=== PATIENT | female | born 1975 | race Caucasian/White ===

== ENCOUNTER 2016-09-23 08:51 | Emergency (ER) | payer BC ==
[2016-09-23 09:00] VITALS: BP 124/63
--- NOTE | 2016-09-23 09:16 | UC ---
Lower Extremity/Ankle HPI - HPI Summary HPI Summary: Right heel pain for about a week. no known injury. she is not a diabetic. it hurts more after a days work. 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 - History of Current Complaint Chief Complaint: UCLowerExtremity Stated Complaint: RIGHT FOOT/HEEL COMPLAINT Time Seen by Provider: 09/23/16 09:09 Hx Obtained From: Patient Hx Last Menstrual Period: 09/03/16 Onset/Duration: Gradual Onset Severity Initially: Moderate Severity Currently: Severe Aggravating Factor(s): Standing, Ambulation Alleviating Factor(s): Rest, Elevation Able to Bear Weight: Yes - Risk Factors Gout Risk Factors: Negative DVT Risk Factors: Negative Septic Arthritis Risk Factor: Negative - Allergies/Home Medications Allergies/Adverse Reactions: Allergies Allergy/AdvReac Type Severity Reaction Status Date / Time Amoxicillin Allergy Severe Hives Verified 09/23/16 08:55 seasonal Allergy Congestion Uncoded 09/23/16 08:55 Home Medications: Home Medications Diphenhydramine HCl [Benadryl Allergy 25 MG CAP] 25 mg PO DAILY PRN 09/23/16 [ History Confirmed 09/23/16] PMH/Surg Hx/FS Hx/Imm Hx Endocrine History Of: Denies: Diabetes Cancer History Of: Denies: Breast Cancer - Surgical History Surgical History: Yes Surgery Procedure, Year, and Place: hernia. colon polyp removal - Family History Known Family History: Positive: Hypertension - Social History Alcohol Use: Occasionally Substance Use Type: None Smoking Status (MU): Never Smoked Tobacco - Immunization History Most Recent Influenza Vaccination: Not the Season Review of Systems All Other Systems Reviewed And Are Negative: Yes Physical Exam Triage Information Reviewed: Yes Appearance: Well-Appearing, No Pain Distress, Well-Nourished Vital Signs: Initial Vital Signs Temp 98.6 F 09/23/16 08:56 Pulse 75 09/23/16 08:56 Resp 16 09/23/16 08:56 BP 124/63 09/23/16 08:56 Pulse Ox 100 09/23/16 08:56 Vital Signs Reviewed: Yes Eyes: Positive: Conjunctiva Clear. Negative: Conjunctiva Inflamed ENT Exam: Normal Dental Exam: Normal Neck exam: Normal Respiratory Exam: Normal Cardiovascular Exam: Normal Abdominal Exam: Normal Musculoskeletal Exam: Other - Right heel tenderness without foot extension. neg heel squeez pain. no ankle pain/tenderness. no obvious swelling or redness of the heel. No puncture wound. Neurological: Positive: Alert, Muscle Tone Normal, Fatigued Psychological Exam: Normal Skin Exam: Normal Skin: Negative: rashes Lower Extremity Course/Dx - Course Course Of Treatment: right heel pain without evidence of infection, PW, plantar fasciatis, stress fracture. this is likely from walking on hard surfaces. she will wear sneakers at work and at home for two weeks and nsaids. if worsening, she will f/u with podiatry. - Differential Dx/Diagnosis Provider Diagnoses: heel pain Discharge - Discharge Plan Condition: Good Disposition: HOME Prescriptions: Naproxen TAB* [Naprosyn 375 mg TAB*] 375 mg PO BID #20 tab Patient Education Materials: Arthralgia (ED) Referrals: Damari Lewis MD [Primary Care Provider] - Messi Bo DPM [Doctor of Podiatric Medicine] - 1 Week
== END 2016-09-23 09:17 | disposition home or self-care (01) ==
LOC: UCCORT 08:51
DX: M79.671 Pain in right foot (principal); Z88.1 Allergy status to other antibiotic agents
CPT/HCPCS: 99212; G0463

== ENCOUNTER 2016-10-16 08:06 | Emergency (ER) | payer BC ==
[2016-10-16 08:19] VITALS: BP 114/72
== END 2016-10-16 09:23 | disposition left against medical advice (07) ==
LOC: UCCORT 08:06
DX: Z53.21 Procedure and treatment not carried out due to patient leaving prior to being seen by health care provider (principal)

== ENCOUNTER 2018-03-11 08:08 | Emergency (ER) | payer BC ==
[2018-03-11 08:24] VITALS: BP 125/77
--- NOTE | 2018-03-11 09:14 | ED ---
Skin Complaint - HPI Summary HPI Summary: 42 yr old female with rash on trunk of body, roundish, raised boarder, scaly, lichen and itchy. Onset a week ago. She has no fever, chills. Does not feel ill. No other complaints. She has history of scleroderma. - History of Current Complaint Chief Complaint: UCSkin Time Seen by Provider: 03/11/18 08:24 Stated Complaint: SKIN COMPLAINT Hx Last Menstrual Period: 02/15/18 Pain Intensity: 0 - Allergy/Home Medications Allergies/Adverse Reactions: Allergies Allergy/AdvReac Type Severity Reaction Status Date / Time amoxicillin Allergy Hives Verified 03/11/18 08:21 seasonal Allergy Congestion Uncoded 03/11/18 08:21 PMH/Surg Hx/FS Hx/Imm Hx Endocrine/Hematology History: Denies: Hx Diabetes - Surgical History Surgery Procedure, Year, and Place: hernia. colon polyp removal Infectious Disease History: No Infectious Disease History: Denies: Traveled Outside the [place] in Last 30 Days - Family History Known Family History: Positive: Hypertension - Social History Occupation: Works From/At Home Lives: With Family Alcohol Use: Occasionally Substance Use Type: Reports: None Smoking Status (MU): Never Smoked Tobacco Review of Systems Constitutional: Negative Positive: Rash All Other Systems Reviewed And Are Negative: Yes Physical Exam Triage Information Reviewed: Yes Vital Signs On Initial Exam: Initial Vitals Temp Pulse Resp BP Pulse Ox 97.5 F 68 14 125/77 100 03/11/18 08:18 03/11/18 08:18 03/11/18 08:18 03/11/18 08:18 03/11/18 08:18 Vital Signs Reviewed: Yes Appearance: Positive: Well-Appearing, No Pain Distress Skin: Positive: Warm, Other - patches of roundish, ellipitical areas on trunk of body that are with slight raised boarder, lichen appearnace, and scally. No cellulitis. ENT: Positive: Normal ENT inspection Neck: Positive: Supple, Nontender Respiratory/Lung Sounds: Positive: Clear to Auscultation, Breath Sounds Present Cardiovascular: Positive: RRR. Negative: Murmur Abdomen Description: Positive: Nontender Musculoskeletal: Positive: Strength/ROM Intact Neurological: Positive: Sensory/Motor Intact, Alert, Oriented to Person Place, Time, CN Intact II-III Psychiatric: Positive: Normal - Jude Coma Scale Best Eye Response: 4 - Spontaneous Best Motor Response: 6 - Obeys Commands Best Verbal Response: 5 - Oriented Coma Scale Total: 15 Diagnostics - Vital Signs Vital Signs Temp Pulse Resp BP Pulse Ox 03/11/18 08:18 97.5 F 68 14 125/77 100 - Laboratory Lab Results: Lab Results 03/11/18 Range/Units 08:47 POC Ur Test Negative (Negative) Lab Statement: Any lab studies that have been ordered have been reviewed, and results considered in the medical decision making process. Course/Dx - Course Course Of Treatment: 42 yr old with likely tinea corporis infection. Recommend fu with PMd for reassessment. - Diagnoses Provider Diagnoses: Tinea corporis Discharge - Sign-Out/Discharge Documenting (check all that apply): Patient Departure All imaging exams completed and their final reports reviewed: No Studies - Discharge Plan Condition: Good Disposition: HOME Prescriptions: Fluconazole 100 MG TAB* [Diflucan 100 MG TAB*] 200 mg PO WEEKLY #4 tab Patient Education Materials: Tinea Corporis (ED) Referrals: Almaz Stone NP [Primary Care Provider] - - Billing Disposition and Condition Condition: GOOD Disposition: Home
== END 2018-03-11 09:23 | disposition home or self-care (01) ==
LOC: UCCORT 08:08
DX: B35.4 Tinea corporis (principal); Z88.0 Allergy status to penicillin
CPT/HCPCS: 84702; 99212; G0463

== ENCOUNTER 2018-05-31 07:26 | Emergency (ER) | payer BC ==
[2018-05-31 07:48] VITALS: BP 136/90
--- NOTE | 2018-05-31 08:06 | UC ---
Respiratory Complaint HPI - HPI Summary HPI Summary: 1. cough x 1 week cough is dry , no sputum , + chest congestion , chest pain with deep breathing no sob, no wheezing , + nasal congestion, pnd, no fever, no chills 2. red sore on the forehead x 3 day , the area is red, swollen, tender to touch - History of Current Complaint Chief Complaint: UCRespiratory Stated Complaint: COUGH,SORE THROAT Time Seen by Provider: 05/31/18 07:38 Hx Obtained From: Patient Hx Last Menstrual Period: 05/23/18 ?: No Onset/Duration: Gradual Onset, Lasting Days - 7, Still Present Timing: Constant Severity Initially: Moderate Severity Currently: Moderate Pain Intensity: 3 Character: Cough: Nonproductive Aggravating Factors: Exertion, Deep Breaths Alleviating Factors: Nothing Associated Signs And Symptoms: Positive: URI, Nasal Congestion. Negative: Fever , Chills, Wheezing, Hemoptysis, Dizziness, Calf Pain, Calf Swelling, Edema, Hoarseness, Sinus Discomfort - Allergies/Home Medications Allergies/Adverse Reactions: Allergies Allergy/AdvReac Type Severity Reaction Status Date / Time amoxicillin Allergy Hives Verified 05/31/18 07:39 seasonal Allergy Congestion Uncoded 05/31/18 07:39 Home Medications: Home Medications Clindamycin Cap(NF) [Clindamycin Cap 300 mg Cap(NF)] 300 mg PO TID 05/31/18 [ History Confirmed 05/31/18] PMH/Surg Hx/FS Hx/Imm Hx - Additional Past Medical History Additional PMH: autoimmune disease- form of scleraderma Previously Healthy: Yes - Surgical History Surgery Procedure, Year, and Place: hernia. colon polyp removal - Family History Known Family History: Positive: Hypertension - Social History Alcohol Use: Occasionally Substance Use Type: None Smoking Status (MU): Never Smoked Tobacco - Immunization History Most Recent Influenza Vaccination: Not the 2016/2016 Season Review of Systems All Other Systems Reviewed And Are Negative: Yes Constitutional: Positive: Negative Skin: Positive: Rash Eyes: Positive: Negative ENT: Positive: Nasal Discharge Respiratory: Positive: Cough Cardiovascular: Positive: Chest Pain Is Patient Immunocompromised?: No Physical Exam Triage Information Reviewed: Yes Appearance: Well-Appearing, No Pain Distress, Well-Nourished Vital Signs: Initial Vital Signs Temp 99.1 F 05/31/18 07:40 Pulse 84 05/31/18 07:40 Resp 17 01/08/19 07:40 BP 136/90 05/31/18 07:40 Pulse Ox 98 05/31/18 07:40 Eye Exam: Normal Eyes: Positive: Conjunctiva Clear ENT: Positive: Normal ENT inspection, Hearing grossly normal, Pharynx normal Neck: Positive: Supple, Nontender, No Lymphadenopathy Respiratory: Positive: Chest non-tender, Lungs clear, Normal breath sounds, No respiratory distress Cardiovascular: Positive: RRR, No Murmur, Pulses Normal Skin: Positive: Other - + area of macular lesion , + mild swelling, erythema, warm to touch, tender UC Diagnostic Evaluation - Laboratory O2 Sat by Pulse Oximetry: 98 - EKG Cardiac Rate: NL Cardiac Rhythm: Sinus: Normal Ectopy: None ST Segment: Normal Respiratory Course/Dx - Differential Dx/Diagnosis Provider Diagnosis: Bronchitis, Cellulitis of forehead Discharge - Sign-Out/Discharge Documenting (check all that apply): Patient Departure All imaging exams completed and their final reports reviewed: No Studies - Discharge Plan Condition: Stable Disposition: HOME Prescriptions: Clindamycin HCl 300 mg PO Q8H #21 capsule Patient Education Materials: Cellulitis (ED), Acute Bronchitis (ED) Referrals: Tammie Ruff MD [Primary Care Provider] - If Needed - Billing Disposition and Condition Condition: STABLE Disposition: Home
== END 2018-05-31 08:05 | disposition home or self-care (01) ==
LOC: UCCORT 07:26
DX: J40 Bronchitis, not specified as acute or chronic (principal); L03.811 Cellulitis of head [any part, except face]; Z88.0 Allergy status to penicillin; D89.89 Other specified disorders involving the immune mechanism, not elsewhere classified
CPT/HCPCS: 93005; 99212; G0463

== ENCOUNTER 2019-08-12 10:27 | Emergency (ER) | payer BC ==
--- NOTE | 2019-08-12 11:23 | UC ---
Respiratory Complaint HPI - HPI Summary HPI Summary: Pt presents with c/o cough X 2 weeks. Pt denies fever, chills or SOB. Pt has seasonal allergies and is currently taking a daily antihistamine. - History of Current Complaint Chief Complaint: UCRespiratory Stated Complaint: COUGH, SOB Time Seen by Provider: 08/12/19 10:35 Hx Obtained From: Patient Hx Last Menstrual Period: ~07/13/2019 ?: No Onset/Duration: Gradual Onset, Lasting Weeks, Still Present Timing: Intermittent Episodes Severity Initially: Mild Severity Currently: Mild Pain Intensity: 0 Character: Cough: Nonproductive Aggravating Factors: Deep Breaths, Recumbent Position Alleviating Factors: Nothing Associated Signs And Symptoms: Positive: Nasal Congestion Related History: Seasonal Allergies - Risk Factors Pulmonary Embolism Risk Factors: Negative Cardiac Risk Factors: Negative Pseudomonas Risk Factors: Negative Tuberculosis Risk Factors: Negative - Allergies/Home Medications Allergies/Adverse Reactions: Allergies Allergy/AdvReac Type Severity Reaction Status Date / Time amoxicillin Allergy Hives Verified 08/12/19 10:36 seasonal Allergy Congestion Uncoded 08/12/19 10:36 Home Medications: Home Medications Cholecalciferol TAB* [Vitamin D TAB*] 5,000 unit PO DAILY 08/12/19 [History Confirmed 08/12/19] PMH/Surg Hx/FS Hx/Imm Hx Previously Healthy: Yes - Surgical History Surgical History: Yes Surgery Procedure, Year, and Place: Right Inguinal Herniorrhaphy, ~1980, [place] - Family History Known Family History: Positive: Hypertension - Social History Occupation: Employed Full-time Lives: With Family Alcohol Use: Occasionally Substance Use Type: None Smoking Status (MU): Never Smoked Tobacco Have You Smoked in the Last Year: No - Immunization History Most Recent Influenza Vaccination: Not the 2015/2016 Season Review of Systems All Other Systems Reviewed And Are Negative: Yes Constitutional: Positive: Negative Skin: Positive: Negative Eyes: Positive: Negative ENT: Positive: Sinus Congestion Respiratory: Positive: Cough Cardiovascular: Positive: Negative Gastrointestinal: Positive: Negative Genitourinary: Positive: Negative Motor: Positive: Negative Neurovascular: Positive: Negative Musculoskeletal: Positive: Negative Neurological/Mental Status: Positive: Negative Psychological: Positive: Negative Is Patient Immunocompromised?: No Physical Exam Triage Information Reviewed: Yes Appearance: Well-Appearing Vital Signs: Initial Vital Signs Temp 99.4 F 08/12/19 10:34 Pulse 88 08/12/19 10:34 Pulse Ox 100 08/12/19 10:34 Vital Signs Reviewed: Yes Eye Exam: Normal ENT: Positive: Nasal congestion Dental Exam: Normal Respiratory: Positive: No respiratory distress Musculoskeletal Exam: Normal Neurological Exam: Normal Psychological Exam: Normal Skin Exam: Normal Respiratory Course/Dx - Course Course Of Treatment: PE limited due to COVID precautions taken - Differential Dx/Diagnosis Differential Diagnosis/HQI/PQRI: Other - seasonal allergies Provider Diagnosis: Cough in adult Discharge ED - Sign-Out/Discharge Documenting (check all that apply): Patient Departure All imaging exams completed and their final reports reviewed: No Studies - Discharge Plan Condition: Stable Disposition: HOME Patient Education Materials: Acute Cough (ED) Forms: COVID-19 Tested & Isolation Referrals: Tammie Ruff MD [Primary Care Provider] - If Needed - Billing Disposition and Condition Condition: STABLE Disposition: Home
[2019-08-12 11:36] VITALS: BP 136/76
--- NOTE | 2019-08-17 07:18 | UC ---
- Progress Note Progress Note: Your coronavirus test was negative You no longer need to self quarantine REcommend continue to self distance If you are still having symptoms or feeling worse, recommend follow up with your PCP or return to urgent care Course/Dx - Diagnoses Provider Diagnoses: Cough in adult Discharge ED - Sign-Out/Discharge Documenting (check all that apply): Post-Discharge Follow Up All imaging exams completed and their final reports reviewed: No Studies - Discharge Plan Condition: Stable Disposition: HOME Prescriptions: predniSONE 10 mg TAB [Deltasone 10 MG TAB*] 30 mg PO DAILY #12 tab Patient Education Materials: Acute Cough (ED) Forms: *Work Release Referrals: Tammie uRff MD [Primary Care Provider] - If Needed - Billing Disposition and Condition Condition: STABLE Disposition: Home
== END 2019-08-12 11:37 | disposition home or self-care (01) ==
LOC: UCCORT 10:27
DX: R05 Cough (principal); Z20.828 Contact with and (suspected) exposure to other viral communicable diseases; Z88.0 Allergy status to penicillin
CPT/HCPCS: 99212; G0463; U0002